=== PATIENT | female | born 1985 | race Two or more races ===

== ENCOUNTER 2017-09-04 18:43 | Emergency (ER) | payer SELFPAY ==
[~2017-09-04] VITALS: Ht 162.6 cm; Wt 70.3 kg
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
[2017-09-04] MEDS ORDERED: KETOROLAC TROMETHAMINE INJ 30 MG/ML VIAL ONE (19:27)
[2017-09-04 19:30] LABS: BASOPHILS # (AUTO) 0.1 /CMM (0.0-0.2); BASOPHILS % (AUTO) 0.9 % (0.0-2.0); EOSINOPHILS # (AUTO) 0.3 /CMM (0.0-0.7); EOSINOPHILS % (AUTO) 4.3 % (0.0-6.0); HEMATOCRIT 41 % (33-45); HEMOGLOBIN 13.9 g/dL (11.5-14.8); LYMPHOCYTES % (AUTO) 32.4 % (20.0-44.0); MEAN CORPUSCULAR HEMOGLOBIN 30 PG (26.0-33.0); MEAN CORPUSCULAR HGB CONC 34 g/dl (31.0-36.0); MEAN CORPUSCULAR VOLUME 89 fL (82-100); MONOCYTES # (AUTO) 0.4 /CMM (0.1-1.30); MONOCYTES % (AUTO) 6.6 % (2.0-12.0); NEUTROPHILS # (AUTO) 3.5 /CMM (1.8-8.9); NEUTROPHILS % (AUTO) 55.8 % (43.0-81.0); PLATELET COUNT (AUTO) 270 /CMM (150-450); RDW COEFFICIENT OF VARIATION 12.1 (11.5-15.0); RED BLOOD CELL COUNT(AUTO) 4.68 MIL/uL (4.0-5.2); WHITE BLOOD COUNT (AUTO) 6.3 K/uL (4.3-11.0)
[2017-09-04] MEDS ORDERED: IV NS 0.9% 1,000 ML BAG IV ONE (19:30)
[2017-09-04] MEDS ORDERED: KETOROLAC TROMETHAMINE INJ 30 MG/ML VIAL IV ONE (19:30)
--- NOTE | 2017-09-04 19:30 | NUR ---
STARTED A SALINE LOCK ON THE LEFT WRIST G20, BLOOD DRAWN AND SENT TO LAB.
--- NOTE | 2017-09-04 19:39 | NUR ---
MEDICATED PATIENT ORDERED.
[2017-09-04 19:53] LABS: CALCIUM, SERUM 9.2 mg/dL (8.5-10.1); CREATININE 0.7 mg/dL (0.6-1.3); POTASSIUM 4.1 mmol/L (3.5-5.1)
[2017-09-04 19:59] LABS: ALBUMIN 3.8 g/dL (3.4-5.0); BILIRUBIN,TOTAL 0.3 mg/dL (0.2-1.0); TOTAL PROTEIN, SERUM 7.5 g/dL (6.4-8.2)
--- NOTE | 2017-09-04 20:01 | NUR ---
PATIENT TO CT.
[2017-09-04] MEDS ORDERED: HYDROMORPHONE INJ 2 MG/ML DISP.SYRIN ONE (20:52)
[2017-09-04] MEDS ORDERED: HYDROMORPHONE 1 MG/1 ML DISP.SYRIN IV ONE (21:00)
--- NOTE | 2017-09-04 21:42 | NUR ---
IV removed. Catheter intact and site benign. Pressure and 4x4 applied to site. No bleeding noted. Patient discharged to home in stable condition. Written and verbal after care instructions given. Patient verbalizes understanding of instruction. Patient is ambulatory with steady gait, instructed not to drive. Accompanied by family. No further complaints.
[2017-09-04 21:43] VITALS: BP 112/72
== END 2017-09-04 21:43 | disposition home or self-care (01) ==
LOC: ER 18:46
DX: R10.30 Lower abdominal pain, unspecified (principal); M54.2 Cervicalgia; E03.9 Hypothyroidism, unspecified; E86.0 Dehydration; R51 Headache; Z90.710 Acquired absence of both cervix and uterus
CPT/HCPCS: 36415; 72125; 74176; 80048; 80076; 85025; 96361; 96374; 96375; 99285; A4606; J1170; J1885; J7030; Z7610